=== PATIENT | female | born 1995 | race Caucasian/White ===

== ENCOUNTER → 2020-10-12 | Emergency (ER) | payer MEDICAID ==
[~2020-10-12] VITALS: Ht 177.8 cm; Wt 59.9 kg
[~2020-10-12] MED LIST: CYCL5TAB PO; IBUP-1957 PO; PRED50TA PO
--- NOTE | 2020-10-12 23:15 | NUR ---
pt bibself c/o palpitations since 2199. Pt aaox4 breathing evenly and unlabored. Per pt, the palpitations create pain that radiates to her left side of her back. Pt also states that she had a swollen lymph node under her left arm that she was treated with amoxicillin x3 weeks ago. SKin is warm and dry. Pt attached to monitor and pox. MD at bedside. Pt given blanket and call light within reach
--- NOTE | 2020-10-13 00:38 | NUR ---
Patient discharged to home in stable condition. Written and verbal after care instructions given. Patient verbalizes understanding of instruction. Pt ambulatory with a steady gait
[2020-10-13 00:41] VITALS: BP 115/85
== END | disposition home or self-care (01) ==
LOC: ER 23:12
DX: M62.838 Other muscle spasm (principal); M54.12 Radiculopathy, cervical region; R07.89 Other chest pain; R00.2 Palpitations; Z79.899 Other long term (current) drug therapy

== ENCOUNTER 2024-09-30 15:05 | Emergency (ER) | payer MEDICAID ==
[~2024-09-30] VITALS: Ht 180.3 cm; Wt 69.4 kg
[2024-09-30 15:22] VITALS: BP 120/84; TEMP 97.9; O2SAT 100
== END 2024-09-30 16:02 | disposition home or self-care (01) ==
LOC: ER 15:12
DX: S06.0X0A Concussion without loss of consciousness, initial encounter (principal); S16.1XXA Strain of muscle, fascia and tendon at neck level, initial encounter; F17.200 Nicotine dependence, unspecified, uncomplicated; Z79.1 Long term (current) use of non-steroidal anti-inflammatories (NSAID); Z79.52 Long term (current) use of systemic steroids; Z88.1 Allergy status to other antibiotic agents; Z79.899 Other long term (current) drug therapy; W22.8XXA Striking against or struck by other objects, initial encounter; Y93.89 Activity, other specified; Y92.89 Other specified places as the place of occurrence of the external cause; Y99.8 Other external cause status